=== PATIENT | female | born 1965 | race Caucasian/White ===

== ENCOUNTER 2019-09-21 07:12 | Outpatient (CLI) | payer OTHER, SELFPAY ==
--- NOTE | ~2019-09-21 | MM_ITS ---
EXAMINATION: MM screening [facility] BI w torrie HISTORY: Screening TECHNIQUE: Craniocaudal and mediolateral oblique 3-D tomosynthesis images were obtained and synthetic 2-D images were generated. CAD analysis was submitted and interpreted. COMPARISON: Comparison to multiple prior studies sequentially, with oldest reviewed study dated 08/06. BREAST PARENCHYMAL COMPOSITION: There are scattered areas of fibroglandular density. FINDINGS: There is a focal asymmetry in the lower central aspect of the left breast anteriorly. The r ight breast is stable without evidence for malignancy. IMPRESSION: 1. Focal left breast asymmetry, lower central aspect of the left breast anteriorly. 2. Additional mammographic views and possible breast ultrasound are recommended. BI-RADS Category 0: Incomplete: Needs additional imaging evaluation. Reviewed, dictated and finalized at location A. IMPRESSION: 1. Focal left breast asymmetry, lower central aspect of the left breast anterio rly. 2. Additional mammographic views and possible breast ultrasound are recommended . BI-RADS Category 0: Incomplete: Needs additional imaging evaluation.
== END 2019-09-21 07:13 | disposition home or self-care (01) ==
PROVIDERS: PCP Family Medicine Adolescent Medicine; Visit Provider Nurse Practitioner
DX: Z12.31 Encounter for screening mammogram for malignant neoplasm of breast (principal); R92.8 Other abnormal and inconclusive findings on diagnostic imaging of breast
CPT/HCPCS: 77063; 77067

== ENCOUNTER 2019-10-07 11:31 | Outpatient (CLI) | payer OTHER, SELFPAY ==
--- NOTE | ~2019-10-07 | MMUS_ITS ---
EXAMINATION: MM diagnostic mammo unilat LT, US breast LT limited HISTORY: Focal asymmetry of the left breast on screening mammogram TECHNIQUE: Additional 3-D tomosynthesis images of the left breast were performed and synthetic 2-D im ages were generated. CAD analysis was submitted and interpreted. High resolution limited left breast ultrasound was performed. COMPARISON: 09/21/2019, 09/11/2018, 09/05/2017, 08/30/2016 FINDINGS: MAMMOGRAPHIC FINDINGS: There is a 10 mm x 7 mm oval, obscured, equal density mass with lobulated border at the 6:00 location in the anterior third of the breast 4.5 cm from the nipple. With spot compression, this has an appea janis similar to prior mammograms. ULTRASOUND: There is a 10 mm x 5 mm cluster of microcysts at the 7:00 location 3 cm from the nipple corresponding to the mammographic finding in question. No suspicious cystic or solid mass is identified. IMPRESSION: 1. Clustered microcysts accounting for the abnormality on screening mammogram. No mammographic or son ographic evidence of malignancy. 2. Recommend routine screening mammography in one year. BI-RADS Category 2: Benign finding(s). Reviewed, dictated and finalized at location A. IMPRESSION: 1. Clustered microcysts accounting for the abnormality on screening mammogram. No mammographic or sonographic evidence of malignancy. 2. Recommend routine screening mammography in one year. BI-RADS Category 2: Benign finding(s).
--- NOTE | ~2019-10-07 | DEXA_ITS ---
Bone Density Report Name: Ana Chin Age: 54 Sex: Female Ethnicity: White Date of : 1965 Indication: prior fracture; Referring Provider: EVELIO, SERGIO Study: Bone densitometry was performed. Exam Date: October 07, 2019 Accession number: [id number] Bone Density: Region BMD T-score Z-score Classification AP Spine (L1-L4) 1.174 1.2 2.2 Normal Femoral Neck (Left) 0.920 0.6 1.7 Normal Total Hip (Left) 1.012 0.6 1.2 Normal Total Hip Bilateral Avg 1.002 0.5 1.2 Normal Femoral Neck (Right) 0.868 0.2 1.2 Normal Total Hip (Right) 0.992 0.4 1.1 Normal World Health Organization criteria for BMD impression classify patients as: Normal (T-score at or above -1.0), Osteopenia (T-score between -1.0 and -2.5), or Osteoporosis (T-score at or below -2.5). 10-year Fracture Risk: FRAX not reported because: Premenopausal woman All T-scores for Spine Total, Hip Total, Femoral Neck at or above -1.0 Clinical Information Provided by Patient: Has had a low trauma fracture Has used the following medications: HRT (i.e. estrogen/hormone therapy), Vitamin D Patient maximum height was 71 No regular weight bearing exercise Drinks caffeinated beverages Onset of menses at age 15 Premenopausal Number of children 3 Impression: The patient's bone mass is within expected range for age, gender and ethnicity. The patient has risk factors, including: previous fracture. Discussion: BONE DENSITY IS WITHIN EXPECTED LIMITS FOR AGE, SEX AND RACE. Bone density is within expected limits for age, sex and race at all sites measured. The patient should follow a healthful lifestyle (good nutrition with adequate calcium and vitamin D, and appropriate weight-bearing exercise). Follow-Up: Consider repeating this study in 5 years or sooner if there is some new clinical indication. Reported by: [facility] on 10/07/2019 12:17:00 PM. Reviewed, dictated and finalized at location ASaritha SHAVER
== END 2019-10-07 11:32 | disposition home or self-care (01) ==
PROVIDERS: PCP Family Medicine Adolescent Medicine; Visit Provider Nurse Practitioner
DX: Z13.820 Encounter for screening for osteoporosis (principal); R92.8 Other abnormal and inconclusive findings on diagnostic imaging of breast
CPT/HCPCS: 76642; 77065; 77080

== ENCOUNTER → 2020-04-14 12:43 | Outpatient (CLI) | payer OTHER, SELFPAY ==
--- NOTE | ~2020-04-14 | US_ITS ---
EXAMINATION: US transvaginal DATE: 04/14/2020 13:32 INDICATION: Postmenopausal bleeding TECHNIQUE: Multiple endovaginal sonographic images of the pelvis were obtained. COMPARISON: None. FINDINGS: The uterus measures 9.2 x 5.1 x 5.5 cm. Intramural fibroids of the uterus measure up to 1.7 cm. The endometrial complex measures 5 mm. The right ovary measures 2.0 x 1.0 x 2.1 cm. The left ova ry measures 3.2 x 2.6 x 2.8 cm and contains a 1.6 cm cyst. There is normal vascular flow in the ovari es. There is no free fluid in the pelvis. IMPRESSION: 1. No sonographic correlate for the patient's symptoms. 2. 1.6 cm left ovarian cyst. Follow-up ultrasound in 12 months is recommended. Reviewed, dictated and finalized at location A. ROOM TABLE ATTENDANT
== END ==
PROVIDERS: Visit Provider Nurse Practitioner
DX: N95.0 Postmenopausal bleeding (principal); N83.202 Unspecified ovarian cyst, left side
CPT/HCPCS: 76830

== ENCOUNTER → 2020-09-25 09:48 | Outpatient (CLI) | payer OTHER, SELFPAY ==
--- NOTE | ~2020-09-25 | MM_ITS ---
EXAMINATION: MM screening [facility] BI w torrie HISTORY: Screening mammogram TECHNIQUE: Craniocaudal and mediolateral oblique 3-D tomosynthesis images were obtained and synthetic 2-D images were generated. CAD analysis was submitted and interpreted. COMPARISON: 10/07/2019, 09/21/2019, 09/11/2018, 09/05/2017 BREAST PARENCHYMAL COMPOSITION: There are scattered areas of fibroglandular density. FINDINGS: Stable bilateral breast masses are considered benign given the lack of interval change. The re is no evidence of suspicious mass, calcification, or architectural distortion to suggest malignanc y in either breast. There has been no suspicious interval change. IMPRESSION: 1. No mammographic evidence of malignancy. 2. Recommend routine screening mammography in one year. BI-RADS Category 2: Benign finding(s). Reviewed, dictated and finalized at location A.
== END ==
PROVIDERS: Visit Provider Nurse Practitioner
DX: Z12.31 Encounter for screening mammogram for malignant neoplasm of breast (principal)
CPT/HCPCS: 77063; 77067

== ENCOUNTER 2021-02-10 16:42 | Emergency (ER) | payer OTHER, SELFPAY ==
[2021-02-10 17:32] VITALS: BP 129/75; PULSE 75; RESP 16; TEMP 35.8; O2SAT 99
[2021-02-10 18:07] LABS: Glucose Point of Care 97 mg/dl (65-105)
--- NOTE | 2021-02-10 18:09 | ED.GENADULT ---
HPI - General Adult General Chief complaint: Urogenital-Female Stated complaint: uti complaints Source: patient Mode of arrival: ambulatory Limitations: no limitations History of Present Illness HPI narrative: Patient presents for evaluation of urinary frequency for the last week. She indicates prior to that time she was consuming quite a bit of caffeine but had decreased caffeine intake prior to the time of symptom onset. She denies dysuria, hematuria, hesitancy, or urgency. She has no fever, chills, nausea, vomiting, abdominal pain or back pain. She is postmenopausal. She denies any vaginal bleeding or discharge. She is sexually active with her . No personal hx or family hx of DM. She states she has been under considerable stress since the passing of her father four months ago. She states she cries on a daily basis. No SI, HI, AH, VH. Related Data Home Medications Medication Instructions Recorded Confirmed ergocalciferol (vitamin D2) 1,250 mcg PO WEEKLY 02/10/21 02/10/21 estradiol-norethindrone acet 1 tablet PO DAILY 02/10/21 02/10/21 sertraline 100 mg PO DAILY 02/10/21 02/10/21 Allergies Allergy/AdvReac Type Severity Reaction Status Date / Time No Known Allergies Allergy Mild Verified 02/10/21 17:52 Review of Systems Review of Systems: CONSTITUTIONAL: Denies fever, chills, or sweats. EYES: Denies visual changes, redness, or discharge. ENT: Denies rhinorrhea, congestion, sore throat, or otalgia. CARDIOVASCULAR: Denies chest pain, palpitations, or edema. RESPIRATORY: Denies cough or dyspnea. GASTROINTESTINAL: Denies abdominal pain, nausea, vomiting, or diarrhea. GENITOURINARY: Reports urinary frequency. Denies dysuria, hematuria, hesitancy, urgency. SKIN: Denies rash or itching. MUSCULOSKELETAL: Denies back pain, joint pain, or myalgia. NEUROLOGIC: Denies headache, numbness, dizziness, or weakness. PSYCHIATRIC: Denies anxiety or depression. [facility] Past Medical History Medical History (Updated 02/10/21 @ 18:14 by Scott Ortiz, KARTHIKEYAN, AALIYAH) No pertinent past medical history Surgical History Surgical History History of section Family History Family History Mother No pertinent past medical history Social History Social History Smoking status: Never smoker Alcohol intake: never Substance use: never Living arrangements: with family Gender identity (if verbalized by the patient): Female Sexual Orientation (if Verbalized by the Patient): Straight or Heterosexual Spiritual care concerns: No Exam Narrative: GENERAL: Well-appearing, well-nourished, and in no acute distress. HEAD: Normocephalic, atraumatic. EYES: PERRLA and EOMI. ENT: Nares clear, no rhinorrhea or epistaxis. Mucous membranes moist. Oropharynx without tonsillar hypertrophy exudate or other lesions. Bilateral TMs pearly jones nonbulging NECK: Supple. No adenopathy or masses. No carotid bruits or JVD CHEST: Clear to auscultation. No respiratory distress. No wheezes rales or rhonchi HEART: Regular rate and rhythm. No murmur heard. Normal peripheral pulses. ABDOMEN: Soft, nontender, nondistended, normal active bowel sounds. No abdominal tenderness. No CVA tenderness. EXTREMITIES: Normal range of motion. No edema. SKIN: Warm, dry, no rash. NEURO: No focal deficits. Alert and oriented x3. PSYCH: Normal mood and affect. Course Course Emergency Course: This is a 55-year-old female who presented with complaints of urinary frequency without any other urinary symptoms. She has no abdominal tenderness or CVA tenderness. She has no systemic signs of infection. She is not experiencing any vaginal bleeding or discharge. Her urine here showed 1+ blood. Blood sugar was normal. Doubt UTI. Will send for urine culture. Advised to call urol
== END 2021-02-10 18:15 | disposition home or self-care (01) ==
PROVIDERS: Emergency Provider Nurse Practitioner; PCP Family Medicine Adolescent Medicine
DX: R35.0 Frequency of micturition (principal); R31.29 Other microscopic hematuria
CPT/HCPCS: 81003; 82948; 87086; 87088; 99213; G0463

== ENCOUNTER → 2021-06-29 14:59 | Outpatient (CLI) | payer OTHER, SELFPAY ==
--- NOTE | ~2021-06-29 | US_ITS ---
EXAMINATION: US transvaginal DATE: 06/29/2021 15:32 INDICATION: Postmenopausal bleeding Comparison:04/14/2020 TECHNIQUE: Multiple endovaginal sonographic images of the pelvis performed. FINDINGS: The uterus measures 8 x 4.8 x 4.9 cm. Uterus is retroverted. There are multiple ill-defined masses, consistent with fibroid changes The endometrial complex measures 8 mm. The right ovary measures 2.2 x 1.6 x 0.9 cm and the left ovary measures 2 x 1.2 x 1.8 cm. There are small follicles in each ovary. Normal doppler signal in both ovaries. There is no free fluid in the pelvis. There are no abnormal masses seen on either side. IMPRESSION: 1. Retroverted uterus containing fibroids, largest measuring approximately 2 cm. Otherwise, unremarka ble pelvic ultrasound. Reviewed, dictated and finalized at location B. IMPRESSION: 1. Retroverted uterus containing fibroids, largest measuring approximately 2 cm . Otherwise, unremarkable pelvic ultrasound.
== END ==
PROVIDERS: PCP Family Medicine Adolescent Medicine; Visit Provider Obstetrics & Gynecology Gynecology
DX: N95.0 Postmenopausal bleeding (principal); N85.4 Malposition of uterus; D25.9 Leiomyoma of uterus, unspecified
CPT/HCPCS: 76830

== ENCOUNTER 2021-08-26 18:55 | Emergency (ER) | payer OTHER, SELFPAY ==
[2021-08-26 19:02] VITALS: BP 151/84; PULSE 86; RESP 16; TEMP 37.1; O2SAT 98
--- NOTE | 2021-08-26 19:07 | ED.ANXIETY ---
HPI - Anxiety General Chief Complaint: Anxiety Stated Complaint: ANXIETY Time Seen by Provider: 08/26/21 19:07 Source: patient, RN notes reviewed and old records reviewed Mode of arrival: ambulatory Limitations: no limitations History of Present Illness HPI narrative: 56-year-old female presents to the [facility] with complaints of anxiety. Reports that her father 10 months ago. Yesterday put her mom into a half-way. Patient has a history of anxiety. Feels guilty about putting mom in a half-way and that she is unable to do everything. Had seen her [employer] provider. It was suggested that she go from 100 mg of Zoloft to 150 which she at this time chose not to do. Was prescribed some Atarax which she reports makes her very drowsy. States she really does not like taking it. Patient states that sometimes she feels like she just gets a little short of breath. Denies any chest pain. Denies any sick symptoms. Denies abdominal pain. Denies suicidal or homicidal feelings Long discussion with patient in regards to self-care, sleep hygiene and the importance of following up with primary care provider for further evaluation. Patient tearful at times. at bedside and very supportive of patient. Patient states that it is just her and her . Does not have other support for the mom. History of similar episodes: Yes Related Data Home Medications Medication Instructions Recorded Confirmed ergocalciferol (vitamin D2) 1,250 1,250 mcg PO WEEKLY 02/10/21 08/08/21 mcg (50,000 unit) capsule estradiol-norethindrone acet 0.5 1 tablet PO DAILY 02/10/21 08/08/21 mg-0.1 mg tablet sertraline 100 mg tablet 100 mg PO DAILY 02/10/21 08/08/21 hydroxyzine pamoate 25 mg capsule See Rx Instructions PO QID PRN 08/08/21 08/08/21 Allergies Allergy/AdvReac Type Severity Reaction Status Date / Time No Known Allergies Allergy Mild Verified 08/08/21 14:07 Review of Systems Review of Systems: All systems reviewed & are unremarkable except as noted in HPI and below Constitutional: Constitutional: Reports no additional constitutional complaints, Denies chills and Denies fever(s) Eyes: Eyes: Reports no additional eye complaints ENT: Reports system reviewed and no additional complaints, except as documented Cardiovascular: Cardiovascular: Reports no additional cardiovascular complaints Respiratory: Respiratory: Reports no additional respiratory complaints Gastrointestinal: Gastrointestinal: Reports no additional gastrointestinal complaints Musculoskeletal: Musculoskeletal: Reports no additional musculoskeletal complaints Integumentary/Breasts: Skin/Breast: Reports system reviewed and no additional complaints, except as docu Neurologic: Reports system reviewed and no additional complaints, except as documented Psychiatric: Psychiatric: Reports as per HPI, Reports anxiety, Denies homicidal ideation and Denies suicidal ideation Allergic/Immunologic: Allergic/Immunologic: Reports no additional allergic/immunologic complaints PMFSH Past Medical History Medical History Anxiety Pure hypercholesterolemia, unspecified Surgical History Surgical History H/O hernia repair Hx of section Family History Family History Mother No pertinent past medical history Father Stomach cancer Social History Social History Smoking status: Never smoker Second hand tobacco smoke exposure: No Alcohol intake: never Substance use: never Substance use type: does not use Gender identity (if verbalized by the patient): Female Sexual Orientation (if Verbalized by the Patient): Straight or Heterosexual Spiritual care concerns: No Agree to blood products: Yes Comments At the time of my signature, I r
== END 2021-08-26 19:49 | disposition home or self-care (01) ==
PROVIDERS: Emergency Provider Nurse Practitioner; PCP Family Medicine Adolescent Medicine
DX: F41.9 Anxiety disorder, unspecified (principal); E78.00 Pure hypercholesterolemia, unspecified
CPT/HCPCS: 99211; G0463

== ENCOUNTER 2021-09-01 14:50 | Emergency (ER) | payer OTHER, SELFPAY ==
--- NOTE | ~2021-09-01 | XR_ITS ---
EXAMINATION: XR chest 2V Exam Date/Time: 09/01/2021 15:25 CDT HISTORY: SOB, ANXIETY Comparison: 03/24/2007. RESULT: Lines, tubes, and devices: None. Lungs and pleura: Clear. Cardiomediastinal silhouette: Stable cardiomediastinal silhouette. Other: No acute osseous or upper abdominal finding. IMPRESSION: No acute cardiopulmonary process. Reviewed, dictated and finalized at location K.
[2021-09-01 14:51] VITALS: BP 143/83; PULSE 95; RESP 18; TEMP 36.4; O2SAT 99
--- NOTE | 2021-09-01 15:10 | ECG_ITS ---
Measurements Intervals [place] Rate: 79 P: 59 [place]: 136 QRS: 52 QRSD: 103 T: 38 QT: 378 QTc: 434 Interpretive Statements SINUS RHYTHM INCOMPLETE RIGHT BUNDLE BRANCH BLOCK BORDERLINE ECG Electronically Signed On 09-01-2021 17:06:53 CDT by Rito James D.O.
--- NOTE | 2021-09-01 15:15 | ED.ANXIETY ---
HPI - Anxiety General Chief Complaint: Anxiety Stated Complaint: anxiety, sob Time Seen by Provider: 09/01/21 14:59 History of Present Illness HPI narrative: 56-year-old female here for evaluation of increased anxiety for the past several days. Patient has a known history of anxiety, and notes that she has had several life stressors in the past several weeks that have led to increased anxiety. She states her anxiety symptoms manifest with trouble getting a deep breath in. She takes sertraline daily and hydroxyzine as needed, but states that the hydroxyzine makes her sleepy and she does not like taking it. Denies chest pain, syncope, leg swelling, history of DVT, palpitations, headaches. Related Data Home Medications Medication Instructions Recorded Confirmed ergocalciferol (vitamin D2) 1,250 1,250 mcg PO WEEKLY 02/10/21 08/27/21 mcg (50,000 unit) capsule estradiol-norethindrone acet 0.5 1 tablet PO DAILY 02/10/21 08/27/21 mg-0.1 mg tablet hydroxyzine pamoate 25 mg capsule See Rx Instructions PO QID PRN 08/08/21 08/27/21 Anxiety sertraline 100 mg tablet 150 mg PO DAILY 08/27/21 08/27/21 Allergies Allergy/AdvReac Type Severity Reaction Status Date / Time No Known Allergies Allergy Mild Verified 08/27/21 13:38 Review of Systems Review of Systems: Gen.: Denies fevers or chills Eyes: Denies eye pain or visual change ENT: Denies congestion Respiratory: Denies shortness of breath or cough CV: Reports trouble getting her breath in. Denies chest pain or palpitations GI: Reports abdominal pain nausea, emesis or diarrhea denies burning, urgency, frequency or hematuria Musculoskeletal: Denies back pain or muscle pain Neuro: Denies numbness, tingling, weakness or focal weakness Psych: Reports anxiety. Skin: Denies rash 10 point review of systems negative, other than as per history of present illness, past medical history and other positives and review of systems PMFSH Past Medical History Medical History Anxiety Pure hypercholesterolemia, unspecified Surgical History Surgical History H/O hernia repair Hx of section Family History Family History Mother No pertinent past medical history Father Stomach cancer Social History Social History (Updated 08/27/21 @ 13:40 by May Tai MA) Smoking status: Never smoker Second hand tobacco smoke exposure: No Alcohol intake: never Substance use: never Substance use type: does not use Gender identity (if verbalized by the patient): Female Sexual Orientation (if Verbalized by the Patient): Straight or Heterosexual Spiritual care concerns: No Agree to blood products: Yes Exam Narrative: APPEARANCE: Well appearing, no pain in distress, well-nourished. Head: Normocephalic and atraumatic. EYES: PERRLA/EOMI, conjunctivae clear NOSE: No nasal drainage EARS: External ear normal in appearance THROAT: Oropharynx is clear. Mucous membranes are moist. NECK: Supple. No adenopathy, no masses. RESPIRATORY: Airway patent, respirations nonlabored. Clear to auscultation bilaterally, no rales, rhonchi, wheezing. CARDIOVASCULAR: Regular rate and rhythm without murmurs, rubs, or gallops. ABDOMINAL: Normoactive bowel sounds. Soft, nontender, nondistended. No rebound tenderness or guarding. MUSCULOSKELETAL: Extremities are warm and well-perfused. Moves all extremities well. No edema. NEURO: Normal speech. No focal neurologic deficits. SKIN: Skin is warm and dry. No rashes. PSYCHIATRIC: Anxious mood. Course Vital Signs Vital signs: Vital Signs Temperature 97.6 F 09/01/21 14:51 Pulse Rate 95 09/01/21 14:51 Respiratory Rate 18 09/01/21 14:51 Blood Pressure 143/83 H 09/01/21 14:51 Pulse Oximetry 99 09/01/21 14:51 Oxygen Delivery Room Air
[2021-09-01 15:26] LABS: Basophils Percent Auto 0.5 % (0.2-1.2); Eosinophils Absolute Auto 0.1 K/mm3 (0-0.3); Eosinophils Percent Auto 1.6 % (0-4.4); Hematocrit 44.2 % (37.0-47.0); Hemoglobin 13.9 g/dL (12.0-15.0); Immature Granulocyte Absolute 0.01 K/mm3 (0.00-0.031); Immature Granulocyte Percent A 0.1 % (0-0.5); Lymphocytes Absolute Auto 2.09 K/mm3 (0.9-3.2); Mean Corpuscular HGB Conc 31.4 g/dl (32-36); Mean Corpuscular Hemoglobin 28.5 pg (26-34); Mean Corpuscular Volume 90.6 fl (80-100); Mean Platelet Volume 10.1 fl (7.4-10.4); Monocytes Absolute Auto 0.5 K/mm3 (0.1-0.6); Monocytes Percent Auto 6.2 % (2.6-8.5); Neutrophils Percent Auto 64.6 % (45.5-73.1); Platelet Count Result 229 k/mm3 (150-375); Red Blood Count 4.88 M/mm3 (4.2-5.4); White Blood Count 7.7 K/mm3 (4.5-10.0)
[2021-09-01 15:40] LABS: Alanine Aminotransferase 21 U/L (6-35); Albumin Level 4.9 g/dL (3.5-5.1); Alkaline Phosphatase 81 U/L (38-126); Anion Gap 6 mmol/L (8-16); Aspartate Amino Transferase 23 U/L (14-36); Bilirubin,Total 0.7 mg/dL (0.2-1.3); Blood Urea Nitrogen 14 mg/dL (7-17); Calcium 9.3 mg/dL (8.4-10.2); Carbon Dioxide 30 mmol/L (22-30); Chloride 105 mmol/L (98-107); Estimated CRCL calculation 71 ml/min; Estimated Glomerular Filt Rate > 60; Glucose 124 mg/dL (65-110); Potassium 3.9 mmol/L (3.4-5.0); Sodium 141 mmol/L (137-145)
[2021-09-01 16:16] LABS: Troponin I < 0.012 ng/mL (0.000-0.034)
[2021-09-01 17:01] VITALS: BP 120/90; PULSE 69; RESP 16; O2SAT 97
== END 2021-09-01 17:01 | disposition home or self-care (01) ==
PROVIDERS: Physician Assistant; Emergency Provider Emergency Medicine; PCP Family Medicine Adolescent Medicine
DX: F41.9 Anxiety disorder, unspecified (principal); E78.00 Pure hypercholesterolemia, unspecified; I45.10 Unspecified right bundle-branch block
CPT/HCPCS: 36415; 71046; 80053; 84443; 84484; 85025; 93005; 99284

== ENCOUNTER 2021-09-29 08:40 | Outpatient (CLI) | payer OTHER, SELFPAY ==
--- NOTE | ~2021-09-29 | MM_ITS ---
EXAMINATION: MM screening elroy BI w torrie HISTORY: Screening TECHNIQUE: Craniocaudal and mediolateral oblique 3-D tomosynthesis images were obtained and synthetic 2-D images were generated. CAD analysis was submitted and interpreted. COMPARISON: Comparison to multiple prior studies sequentially, with oldest reviewed study dated 08/30. BREAST PARENCHYMAL COMPOSITION: There are scattered areas of fibroglandular density. FINDINGS: The right breast is stable without evidence for malignancy. There are multiple new nodular asymmetry centered in the upper outer quadrant of the left breast. IMPRESSION: 1. Multiple new nodular asymmetries of the left breast. 2. Additional mammographic views and possible breast ultrasound are recommended. BI-RADS Category 0: Incomplete: Needs additional imaging evaluation. Reviewed, dictated and finalized at location A. IMPRESSION: 1. Multiple new nodular asymmetries of the left breast. 2. Additional mammographic views and possible breast ultrasound are recommended . BI-RADS Category 0: Incomplete: Needs additional imaging evaluation.
== END 2021-09-29 08:41 | disposition home or self-care (01) ==
PROVIDERS: PCP Family Medicine Adolescent Medicine; Visit Provider Obstetrics & Gynecology Gynecology
DX: Z12.31 Encounter for screening mammogram for malignant neoplasm of breast (principal); R92.8 Other abnormal and inconclusive findings on diagnostic imaging of breast
CPT/HCPCS: 77063; 77067

== ENCOUNTER → 2021-10-12 07:37 | Outpatient (CLI) | payer OTHER, SELFPAY ==
--- NOTE | ~2021-10-12 | MMUS_ITS ---
EXAMINATION: MM diagnostic elroy LT w torrie, US breast LT limited HISTORY: Possible left breast masses on screening mammogram TECHNIQUE: Additional 3-D tomosynthesis images of the left breast were performed and synthetic 2-D im ages were generated. CAD analysis was submitted and interpreted. High resolution limited left breast ultrasound was performed. COMPARISON: 09/29/2021, 09/25/2020, 10/07/2019, 09/21/2019 FINDINGS: MAMMOGRAPHIC FINDINGS: There is a return to baseline fibroglandular appearance with spot compression of the left breast in t he area questioned on screening mammogram. ULTRASOUND: Small cysts in the upper outer quadrant of the breast measure up to 4 mm. No suspicious cystic or bess id mass is identified. IMPRESSION: 1. No mammographic or sonographic evidence of malignancy. 2. Recommend routine screening mammography in one year. BI-RADS Category 2: Benign finding(s). Reviewed, dictated and finalized at location A. IMPRESSION: 1. No mammographic or sonographic evidence of malignancy. 2. Recommend routine screening mammography in one year. BI-RADS Category 2: Benign finding(s).
== END ==
PROVIDERS: PCP Family Medicine Adolescent Medicine; Visit Provider Obstetrics & Gynecology Gynecology
DX: R92.8 Other abnormal and inconclusive findings on diagnostic imaging of breast (principal); N60.02 Solitary cyst of left breast
CPT/HCPCS: 76642; 77061; 77065; G0279

== ENCOUNTER → 2022-07-25 09:55 | Outpatient (CLI) | payer OTHER, SELFPAY ==
--- NOTE | ~2022-07-25 | MMUS_ITS ---
EXAMINATION: MM diagnostic elroy LT w torrie, US breast LT complete HISTORY: Skin dimpling, outer mid left breast, for 2 weeks TECHNIQUE: Full field and spot ML, MLO and CC 3-D tomosynthesis images of the left breast were perfor med and synthetic 2-D images were generated. CAD analysis was submitted and interpreted. High resolut ion complete left breast ultrasound examination including all 4 quadrants and subareolar area was per formed. COMPARISON: 10/12/2021 diagnostic left mammogram and limited left breast ultrasound 09/25/2020 bilateral screening mammogram 10/07/2019 diagnostic left mammogram and limited left breast ultrasound FINDINGS: MAMMOGRAPHIC FINDINGS: There are multiple scattered 6 mm smaller circumscribed nodular densities. No suspicious mass or arch itectural distortion, malignant calcification, skin thickening or retraction is evident. ULTRASOUND: At 4:00 6 cm from the nipple at the area of palpable abnormality there is a small irregular hypoechoi c lesion measuring approximately 2 x 2.5 mm, with posterior shadowing. Ultrasound-guided biopsy is re commended. There are multiple scattered circumscribed sonolucent and hypoechoic benign-appearing lesions, the la rgest situated at 2:00 4 cm from the nipple, measuring 2.1 x 5.5 x 6.1 mm, without internal vasculari ty or posterior shadowing. IMPRESSION: 1. Small irregular hypoechoic up to 2.5 mm lesion with posterior shadowing at 4:00 6 cm from nipple 2. Ultrasound-guided biopsy of left breast 4:00 lesion is recommended BI-RADS category 4, suspicious findings. Reviewed, dictated and finalized at location A. IMPRESSION: 1. Small irregular hypoechoic up to 2.5 mm lesion with posterior shadowing at 4 :00 6 cm from nipple 2. Ultrasound-guided biopsy of left breast 4:00 lesion is recommended BI-RADS category 4, suspicious findings.
== END ==
PROVIDERS: PCP Nurse Practitioner; Visit Provider Nurse Practitioner
DX: N64.89 Other specified disorders of breast (principal); R92.2 Inconclusive mammogram
CPT/HCPCS: 76641; 77061; 77065; G0279

== ENCOUNTER 2024-04-26 10:09 | Outpatient (CLI) | payer OTHER, SELFPAY ==
--- NOTE | ~2024-04-26 | US_ITS ---
US transvaginal Ordering provider: Monica Song, [employer] History: . Postmenopausal bleeding . Comparison: None. Technique: endovaginal ultrasound of the pelvis (Doppler ultrasound interrogation techniques used as needed for this exam.) FINDINGS: CERVIX: Normal. UTERUS: Measures 6.5x 3.6x 4.6 cm in length which is within normal limits and is anteverted. Fibroid is seen anteriorly measuring 1.6 x 1.5 x 1.9 CNM. ENDOMETRIUM: Normal in thickness measuring 3.4 mm. No endometrial masses, cysts or fluid. CUL DE SAC: No free fluid. RIGHT OVARY: Normal in size.Normal echotexture. Doppler vascular flow present. LEFT OVARY: Normal in size . Normal echotexture. Doppler vascular flow present. ADNEXA: Normal. No mass. IMPRESSION: Fibroid of the uterus Otherwise, normal pelvic ultrasound. Reviewed, dictated and finalized at location A.
== END 2024-04-26 10:10 | disposition home or self-care (01) ==
PROVIDERS: PCP Nurse Practitioner; Visit Provider Nurse Practitioner
DX: N95.0 Postmenopausal bleeding (principal); D25.9 Leiomyoma of uterus, unspecified
CPT/HCPCS: 76830

== ENCOUNTER 2024-05-23 08:04 | Emergency (ER) | payer OTHER, SELFPAY ==
--- NOTE | 2024-05-23 08:06 | ED.URI ---
HPI - URI/Sore Throat General Chief Complaint: Upper Respiratory Infection Stated Complaint: sore throat,cough Time Seen by Provider: 05/23/24 08:05 Source: patient Mode of arrival: ambulatory Limitations: no limitations History of Present Illness HPI Narrative: Ana is a 59-year-old female patient presenting to the clinic today with complaints of sore throat and cough x3 days. She reports no known fevers, chills, or body aches. States she started to lose her voice over the last 2 days. Had strep test done on May 21 and it was negative at her doctor's office. Has done two at home COVID testing were negative. Related Data Home Medications ?Medication ?Instructions ?Recorded ?Confirmed ?Last Taken ?Type ergocalciferol (vitamin D2) 1,250 1,250 mcg PO WEEKLY 02/10/21 01/26/24 Unknown History mcg (50,000 unit) capsule atorvastatin 20 mg tablet mg 05/23/24 Unknown History Allergies Allergy/AdvReac Type Severity Reaction Status Date / Time No Known Allergies Allergy Mild Verified 05/23/24 08:12 Review of Systems Review of Systems: Pertinent positives per HPI. Patient denies any fever, chills, rash, headache, visual changes, dizziness, cough, shortness of breath, chest pain, palpitations, nausea, vomiting, diarrhea, constipation, abdominal pain, or any urinary issues. [facility] Past Medical History Medical History Anxiety Pure hypercholesterolemia, unspecified Surgical History Surgical History H/O hernia repair Hx of section Family History Family History Mother No pertinent past medical history Father Stomach cancer Social History Social History Smoking status: Never smoker Second hand tobacco smoke exposure: No Alcohol intake: never Substance use: never Substance use type: does not use Living arrangements: with family Occupation/Education: occupation Gender identity (if verbalized by the patient): Female Sexual Orientation (if Verbalized by the Patient): Straight or Heterosexual Spiritual care concerns: No Agree to blood products: Yes Comments At the time of my signature, I reviewed and agree with the nursing past medical, surgical, social, and family history. There is no relevant family history pertinent to the patient complaint. Exam Narrative: General: Well-developed, well nourished, in no apparent distress Head: Normocephalic, atraumatic Eyes: Pupils equally round and reactive to light bilaterally, EOM intact, sclera and conjunctive clear, no discharge, lids normal Ears: TMs intact and congested, ear canals clear, no drainage, grossly hearing normal. Nose: Nares patent, clear nasal discharge, no inflammation, no sinus tenderness. Mouth: Oral pharynx without lesions or masses, good dentition, MMM. Postnasal drip Neck: Supple, trachea midline, no enlargement of anterior or posterior cervical nodes, no thyroid masses or goiter palpable. Cardio: Regular rate and rhythm, s1 and s2 normal, no murmur appreciated. Resp: Clear to auscultation bilaterally, no rhonchi, rales, wheezing or rubs Course Course Emergency Course: Portions of this record may have been created with voice recognition software. Level of Care: Express Care Visit Vital Signs Vital signs: Vital signs reviewed MDM - URI/Sore Throat MDM Narrative Medical decision making narrative: At the time of visit patient is resting comfortably on the exam table. Patient appears to be nontoxic. Plan: I suspect patient has URI/pharyngitis. Offer to send and steroids for the patient for symptoms however she stated that she is unable to take steroids due to a retinal issue. Will send in prescription for some Tessalon Perles. Supportive measures were discussed with the patient and they voiced understanding discharge instructions and agrees to treatment plan. Return precautions reviewed Differential Diagnosis Differential diagnosis: Likely upper respiratory infection, otitis media, sinusitis, viral infection, bronchitis, influenza, pharyngitis and other (COVID) Discharge Plan Discharge Clinical Impression: URI (upper respiratory infection) Qualifiers: URI type: unspecified URI Qualified Code(s): J06.9 - Acute upper respiratory infection, unspecified Pharyngitis Qualifiers: Pharyngitis/tonsillitis etiology: unspecified etiology Qualified Code(s): J02.9 - Acute pharyngitis, unspecified Patient Disposition: Home Condition: Stable Instructions: Antibiotic Form, Pharyngitis (ED), Cold Symptoms (ED) Additional Instructions: Take medications as prescribed-Slava Grijalva May take Mucinex during the day Increase fluids and stay well hydrated Tylenol/motrin for pain/fever OTC antihistamines such as Zyrtec or Claritin as directed Vicks vapor rub to open sinuses Sinus rinses for congestion Cepacol spray, cough drops, throat lozenges, warm tea with honey/lemon, gargle salt water to soothe throat BRAT diet for diarrhea Clear liquids x 24 hours then advance as tolerated for nausea/vomiting Go to the ED if you develop a worsening in your condition- high fever not controlled by Tylenol or Motrin, dehydration, weakness, lethargy, shortness of breath, or chest pain. Follow up with your PCP in 3-5 days if symptoms persist. Patient Language: Mongolian Prescriptions: New benzonatate 200 mg capsule 200 mg PO TID 7 Days Qty: 21 0RF No Action ergocalciferol (vitamin D2) 1,250 mcg (50,000 unit) capsule 1,250 mcg PO WEEKLY atorvastatin 20 mg tablet buspirone 10 mg tablet 10 mg PO BID Qty: 60 5RF sertraline 100 mg tablet 150 mg PO DAILY Qty: 60 5RF lorazepam 0.5 mg tablet 0.5 mg PO BID PRN (Reason: anxiety) Qty: 40 1RF meclizine 25 mg tablet 25 mg PO QID PRN (Reason: dizziness) Qty: 20 0RF Follow-up/Referrals: Juan Neville MD [Primary Care Provider] - Time of Disposition: 08:22 Quality NIHSS Nursing Documentation ED NIHSS nursing documentation: reviewed/agree
[2024-05-23 08:14] VITALS: BP 135/77; PULSE 86; RESP 20; TEMP 37.2; O2SAT 97
== END 2024-05-23 08:30 | disposition home or self-care (01) ==
PROVIDERS: Emergency Provider Nurse Practitioner Family; PCP Family Medicine Adolescent Medicine
DX: J06.9 Acute upper respiratory infection, unspecified (principal); J02.9 Acute pharyngitis, unspecified; E78.00 Pure hypercholesterolemia, unspecified; F41.9 Anxiety disorder, unspecified
CPT/HCPCS: 99213; G0463

== ENCOUNTER 2024-11-09 14:24 | Outpatient (CLI) | payer OTHER, SELFPAY ==
--- OUTSIDE RECORDS SUMMARY | 2017-09-05 | XMS_ITS | Encounter Summary ---
Author Organization [facility] Healthcare Address [address] [place] [address] Care Team Providers Care Business Development Intern Name Role Phone Unavailable Primary Care Provider Unavailabl e Reason for Visit * Diagnostic Imaging (Routine) - Closed Specialty Diagnoses / Procedures Referred By Margarita minaya Referred To Contact Diagnoses Mass of left breast, unspecified quadrant Procedures Breast Imaging Screening Outside Reference Karina Mcmanus NP Phone: tel: fax: Referral ID Status Reason Start Date Expiration Date Visits Re quested Visits Authorized [id number] Closed 08/08/2022 09/07/2023 1 1 Encounter Details Date Type Department Care Team (Late st Contact Info) Description 09/05/2017 Hospital Encounter [facility] [address] [place] [id number] Social History Tobacco Use Types Packs/Day Years Used Date Smoking Tobacco: Never Passive Smoke Exposure: Never Smokeless Tobacco: Never Comments No Sex and Gender Information Value Date Recorded Sex Assigned at Not on file Legal Sex Female 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 TECH Gender Identity Female 07/11/2023 7:56 AM CDT Sexual Orientation Straight 07/11/2023 7: 57 AM CDT documented as of this encounter Plan of Treatment Not on file documented as of this encounter Procedures Procedure Name Priority Date/Time Associated Diagnosis Comments BREAST IMAGING MG SCREENING OUTSIDE REFERENCE Schedule Routine, Read Routine (OP Routine) 09/05/2017 12:00 AM CDT Mass of left breast, unspecified quadrant documented in this encounter Results * Breast Imaging Screening Outside Reference (09/05/2017 12:00 AM CDT) Impressions [facility] - 08/08/2022 9:17 AM CDT These images are for Reference purposes only and have not been reviewed by [facility] Radiology. There will be no report generated by a [facility] Radiologist. Narrative [facility] - 08/08/2022 9:17 AM CDT EXAMINATION: Images For Reference Purposes Only us Karina Mcmanus NP IMG MAMMO PROCEDURES Fin al Result [facility] documented in this encounter Visit Diagnoses Not on filedocumented in this encounter
--- OUTSIDE RECORDS SUMMARY | 2018-09-11 | XMS_ITS | Encounter Summary ---
Author Organization [facility] Healthcare Address [address] [place] [address] Care Team Providers Care Communications Designer Name Role Phone Unavailable Primary Care Provider Unavailabl e Reason for Visit * Diagnostic Imaging (Routine) - Closed Specialty Diagnoses / Procedures Referred By Margarita minaya Referred To Contact Procedures Breast Imaging Screening Outside Reference Karina Mcmanus NP Phone: tel: fax: Referral ID Status Reason Start Date Expiration Date Visits Re quested Visits Authorized [id number] Closed 08/08/2022 09/07/2023 1 1 Encounter Details Date Type Department Care Team (Late st Contact Info) Description 09/11/2018 Hospital Encounter [facility] [address] [place] [id number] Social History Tobacco Use Types Packs/Day Years Used Date Smoking Tobacco: Never Passive Smoke Exposure: Never Smokeless Tobacco: Never Comments No Sex and Gender Information Value Date Recorded Sex Assigned at Not on file 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 Gender Identity Female 07/11/2023 7:56 AM CDT Sexual Orientation Straight 07/11/2023 7: 57 AM CDT documented as of this encounter Plan of Treatment Not on file documented as of this encounter Procedures Procedure Name Priority Date/Time Associated Diagnosis Comments BREAST IMAGING MG SCREENING OUTSIDE REFERENCE Routine 09/11/2018 12:00 AM CDT documented in this encounter Results * Breast Imaging Screening Outside Reference (09/11/2018 12:00 AM CDT) Impressions [facility] - 08/08/2022 9:17 AM CDT These images are for Reference purposes only and have not been reviewed by [facility] Radiology. There will be no report generated by a [facility] Radiologist. Narrative [facility] - 08/08/2022 9:17 AM CDT EXAMINATION: Images For Reference Purposes Only us Karina Mcmanus NP IMG MAMMO PROCEDURES Fin al Result [facility] documented in this encounter Visit Diagnoses Not on filedocumented in this encounter
--- OUTSIDE RECORDS SUMMARY | 2019-09-21 | XMS_ITS | Encounter Summary ---
Author Organization [facility] Healthcare Address [address] [place] [address] Care Team Providers Care Tyre Builder Name Role Phone Unavailable Primary Care Provider Unavailabl e Reason for Visit * Diagnostic Imaging (Routine) - Closed Specialty Diagnoses / Procedures Referred By Margarita minaya Referred To Contact Procedures Breast Imaging Screening Outside Reference Karina Mcmanus NP Phone: tel: fax: Referral ID Status Reason Start Date Expiration Date Visits Re quested Visits Authorized [id number] Closed 08/08/2022 09/07/2023 1 1 Encounter Details Date Type Department Care Team (Late st Contact Info) Description 09/21/2019 Hospital Encounter [facility] [address] [place] [id number] Social History Tobacco Use Types Packs/Day Years Used Date Smoking Tobacco: Never Passive Smoke Exposure: Never Smokeless Tobacco: Never Comments No Sex and Gender Information Value Date Recorded Sex Assigned at Not on file 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 Gender Identity Female 07/11/2023 7:56 AM CDT Sexual Orientation Straight 07/11/2023 7: 57 AM CDT documented as of this encounter Plan of Treatment Not on file documented as of this encounter Procedures Procedure Name Priority Date/Time Associated Diagnosis Comments BREAST IMAGING MG SCREENING OUTSIDE REFERENCE Routine 09/21/2019 12:00 AM CDT documented in this encounter Results * Breast Imaging Screening Outside Reference (09/21/2019 12:00 AM CDT) Impressions [facility] - 08/08/2022 9:36 AM CDT These images are for Reference purposes only and have not been reviewed by [facility] Radiology. There will be no report generated by a [facility] Radiologist. Narrative [facility] - 08/08/2022 9:36 AM CDT EXAMINATION: Images For Reference Purposes Only us Karina Mcmanus NP IMG MAMMO PROCEDURES Fin al Result [facility] documented in this encounter Visit Diagnoses Not on filedocumented in this encounter
--- OUTSIDE RECORDS SUMMARY | 2019-10-07 | XMS_ITS | Encounter Summary ---
Author Organization [facility] Healthcare Address [address] [place] [address] Care Team Providers Care Papeterie Table Assembler Name Role Phone Unavailable Primary Care Provider Unavailabl e Reason for Visit * Diagnostic Imaging (Routine) - Closed Specialty Diagnoses / Procedures Referred By Margarita minaya Referred To Contact Procedures Breast Imaging US Outside Reference Karina Mcmanus NP Phone: tel: fax: Referral ID Status Reason Start Date Expiration Date Visits Re quested Visits Authorized [id number] Closed 08/08/2022 09/07/2023 1 1 Encounter Details Date Type Department Care Team (Late st Contact Info) Description 10/07/2019 Hospital Encounter [facility] [address] [place] [id number] Social History Tobacco Use Types Packs/Day Years Used Date Smoking Tobacco: Never Passive Smoke Exposure: Never Smokeless Tobacco: Never Comments No Sex and Gender Information Value Date Recorded Sex Assigned at Not on file Legal Sex Female 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 MANAGER Gender Identity Female 07/11/2023 7:56 AM CDT Sexual Orientation Straight 07/11/2023 7 :57 AM CDT documented as of this encounter Plan of Treatment Not on file documented as of this encounter Procedures Procedure Name Priority Date/Time Associated Diagnosis Comments BREAST IMAGING US OUTSIDE REFERENCE Routine 10/07/2019 12:00 AM CDT documented in this encounter Results * Breast Imaging US Outside Reference (10/07/2019 12:00 AM CDT) Impressions [facility] - 08/08/2022 9:35 AM CDT These images are for Reference purposes only and have not been reviewed by [facility] Radiology. There will be no report generated by a [facility] Radiologist. Narrative [facility] - 08/08/2022 9:35 AM CDT EXAMINATION: Images For Reference Purposes Only us Karina Mcmanus NP IMG MAMMO PROCEDURES Fin al Result [facility] documented in this encounter Visit Diagnoses Not on filedocumented in this encounter
--- OUTSIDE RECORDS SUMMARY | 2019-10-07 00:05 | XMS_ITS | Encounter Summary ---
Author Organization [facility] Healthcare Address [address] [place] [address] Care Team Providers Care Arts Therapist Name Role Phone Unavailable Primary Care Provider Unavailabl e Reason for Visit * Diagnostic Imaging (Routine) - Closed Specialty Diagnoses / Procedures Referred By Margarita minaya Referred To Contact Procedures Breast Imaging Diagnostic Outside Reference Karina Mcmanus NP Phone: tel: fax: Referral ID Status Reason Start Date Expiration Date Visits Re quested Visits Authorized [id number] Closed 08/08/2022 09/07/2023 1 1 Encounter Details Date Type Department Care Team (Late st Contact Info) Description 10/07/2019 12:05 AM CDT Hospital Encounter [facility] ([facility]) [address] [place] [id number] Social History Tobacco Use Types Packs/Day Years Used Date Smoking Tobacco: Never Passive Smoke Exposure: Never Smokeless Tobacco: Never Comments No Sex and Gender Information Value Date Recorded Sex Assigned at Not on file 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 Gender Identity Female 07/11/2023 7:56 AM CDT Sexual Orientation Straight 07/11/2023 7: 57 AM CDT documented as of this encounter Plan of Treatment Not on file documented as of this encounter Procedures Procedure Name Priority Date/Time Associated Diagnosis Comments BREAST IMAGING MG DIAGNOSTIC OUTSIDE REFERENCE Routine 10/07/2019 12:05 AM CDT documented in this encounter Results * Breast Imaging Diagnostic Outside Reference (10/07/2019 12:05 AM CDT) Impressions [facility] - 08/08/2022 9:35 AM CDT These images are for Reference purposes only and have not been reviewed by [facility] Radiology. There will be no report generated by a [facility] Radiologist. Narrative [facility] - 08/08/2022 9:35 AM CDT EXAMINATION: Images For Reference Purposes Only us Karina Mcmanus NP IMG MAMMO PROCEDURES Fin al Result [facility] documented in this encounter Visit Diagnoses Not on filedocumented in this encounter
--- OUTSIDE RECORDS SUMMARY | 2024-11-09 14:38 | XMS_ITS | Clinical Summary ---
Author Organization [facility] Address [address] [place] [address] Care Team Providers Care Design Consultant Name Role Phone Juan Neville MD Primary Care Provider [phone] Allergies No known active allergies Medications Estradiol-Noret hindrone Acet 0.5-0.1 MG Tab 0 Active sertraline 50 MG tablet 0 Active vitamin D2, ergocalciferol, 53600 UNITS capsule TK ONE C PO ONCE A WK WITH A LARGE MEAL 9 Active meclizine 25 MG tablet TK 1 T PO QID PRF DIZZINESS 0 Active oseltamivir 75 MG capsule TK 1 C PO BID FOR 5 DAYS 0 Active sulfamethoxazol e-trimethoprim 800-160 MG tablet Take 1 tablet by mouth 2 (two) times daily. For 10 days 0 Active Active Problems Problem Noted Date Diagnosed Date Avulsion fracture of distal fibula 05/31/2019 Family History Medical History Relation Comments No Known Problems Brother No Known Problems Father No Known Problems Maternal Aunt No Known Problems Maternal Grandfather No Known Problems Maternal Grandmother No Known Problems Maternal Uncle No Known Problems Mother No Known Problems Paternal Aunt No Known Problems Paternal Grandfather No Known Problems Paternal Grandmother No Known Problems Paternal Uncle No Known Problems Sister Relation Status Comments Brother Father Maternal Aunt Maternal Grandfather Maternal Grandmother Maternal Uncle Mother Paternal Aunt Paternal Grandfather Paternal Grandmother Paternal Uncle Sister Social History Tobacco Use Types Packs/Day Years Used Date Smoking Tobacco: Never Smokeless Tobacco: Never Alcohol Use Standard Drinks/Week Comments Never 0 (1 standard drink = 0.6 oz pur e alcohol) AUDIT-C Answer Date Recorded Frequency of Alcohol Consumption Never 05/31/2019 Average Number of Drinks Not on file 020 Frequency of Binge Drinking Not on file 05/12 Comments Unknown Sex and Gender Information Value Date Recorded Sex Assigned at Not on file Legal Sex Female 11:50 AM CDT Gender Identity Not on file Sexual Orientation Not on file Last Filed Vital Signs Vital Sign Reading Time Taken Comments Blood Pressure 119/79 06/11/2019 8:38 AM CDT Pulse 67 06/11/2019 8:38 AM CDT Temperature 36.7 C (98 F) 06/11/2019 8:38 AM CDT Respiratory Rate - - Oxygen Saturation 98% 05/31/2019 8:13 AM CDT Inhaled Oxygen Concentration - - Weight 95.8 kg (211 lb 3.2 oz) 06/11/2019 8:38 A M CDT Height 182.9 cm (6') 06/11/2019 8:38 AM CDT Body Mass Index 28.64 06/11/2019 8:38 AM CDT Plan of Treatment Health Maintenance Due Date Last Done Comments Cervical Cancer Screening Pa p Smear (Age 30 to 64) Every 3 Years 1965 Colorectal Cancer Screening Colonoscopy (10 Years) 1965 Annual Physical 1968 Hepatitis C 1983 DTaP, Tdap and Td Vaccines ( 1 - Tdap) 1984 Cervical Cancer Screening Pa p with HPV Testing (Age 30 to 64) Every 5 Years 1995 Cervical Cancer Screening with HPV 1995 Mammogram Screening 2005 Pneumococcal Vaccine: 50+ Ye ars (1 of 1 - PCV) 2015 Zoster Vaccines (1 of 2) 2015 COVID-19 Vaccine (1 - 2023-2 5 season) 2024 Meningococcal B Vaccine Aged Out No l onger eligible based on patient's age to complete this topic Meningococcal Vaccine Aged Out No julián gerardo eligible based on patient's age to complete this topic RSV Immunizations Under 20 Months Aged Out No longer eligible based on patient's age to complete this topic Insurance [facility] [employer]OOK Care Teams Design Consultant Relationship Specialty Start Date End Date Juan Neville MD [phone] [id number] PCP - General FAMILY PRACTICE 05/28/19
--- OUTSIDE RECORDS SUMMARY | 2024-11-09 14:38 | XMS_ITS | Clinical Summary ---
Author Organization [facility] Address Formerly [facility] [place] [address] Care Team Providers Care Toppiece Chopper Name Role Phone Juan Neville MD Primary Care Prov ider Laura Shaw MD Unavailable [phone] Allergies No known active allergies Medications Zoloft 100 mg tablet Take 1 tablet (100 mg total) by mouth daily Active HYDROXYZINE PAMOATE ORAL Take 25 mg by mouth daily Active ergocalciferol, vitamin D2, (VITAMIN D2 ORAL) Take 1.25 Units by mouth every 7 days Active Active Problems Problem Noted Date Diagnosed Date Breast lesion 08/27/2022 Abnormal mammogram of left breast 08/27/2022 Encounters Date Type Department Care Team Description 08/26/2024 7:24 AM CDT - 08/26/2024 11:59 PM CDT Hospital Encounter [facility] [address] Breast [facility] [address] [place] [id number] Screening mammogram, encounter for Discharge Disposition: Discharge to home or self care from Last 3 Months Surgical History Surgery Date Site/Laterality Comments SECTION Family History Medical History Relation Name Comments Stomach cancer Father Breast cancer Neg Hx Relation Name Status Comments Father Social History Tobacco Use Types Packs/Day Years Used Date Smoking Tobacco: Never Passive Smoke Exposure: Never Smokeless Tobacco: Never Tobacco Cessation:Counseling Given: Not Answered Comments No Sex and Gender Information Value Date Recorded Sex Assigned at Not on file Legal Sex 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 [employer] Gender Identity Female 07/11/2023 7:56 AM CDT Sexual Orientation Straight 07/11/2023 7: 57 AM CDT Obstetrics History Para Term AB IAB SAB Ectopic Multiple Livin g Live Births 3 3 3 3 Date Outcome GA Total Labor Labor/2nd/3rd Weight Sex Type Anes PTL Mireille A1 A5 Name Clin Term Term Term Last Filed Vital Signs Vital Sign Reading Time Taken Comments Blood Pressure - - Pulse - - Temperature - - Respiratory Rate - - Oxygen Saturation - - Inhaled Oxygen Concentration - - Weight 97.5 kg (215 lb) 08/23/2022 1:03 PM CDT Height 182.9 cm (6') 08/23/2022 1:03 PM CDT Body Mass Index 29.16 08/23/2022 1:03 PM CDT Plan of Treatment Health Maintenance Due Date Last Done Comments Cervical Cancer Screening 1965 Colon Cancer Screening-Colonoscopy 1965 Depression Screening 1965 Hepatitis C Screening 1965 DTaP/Tdap/Td Vaccine (1 - Tdap) 1976 Hepatitis B Screening 1983 Regular Well Visit/Exam 18-64 1983 Zoster Vaccine (1 of 2) 2015 Covid-19 Vaccine (4 - 2024-2 6 season) 2024 12/04/2020, 04/15/2020, 03/18/2020 Influenza Vaccine (#1) 2024 Breast Cancer Screening-Mammogram 08/26/2025 08/26/2024, 08/25/2023, 08/23/2022 Pneumococcal vaccine <65 Aged Out No longer eligible based on patient's age to complete this topic Procedures Procedure Name Priority Date/Time Associated Diagnosis Comments SCREENING MAMMOGRAM BILATERAL W NAIF Schedule Routine, Read Routine (OP Routine) 08/26/2024 7:35 AM CDT Screening mammogram, encounter for from Last 3 Months Results * Screening Mammogram Bilateral W Naif (08/26/2024 7:35 AM CDT) Anatomical Region Laterality Modality Breast Bilateral Mammography Impressions 08/26/2024 8:25 AM CDT Bilateral No evidence of malignancy in either breast. OVERALL BI-RADS FINAL ASSESSMENT: 1 - Negative RECOMMENDATION: Recommend bilateral annual screening mammography. Narrative 08/26/2024 8:25 AM CDT EXAMINATION: Screening Mammogram Bilateral W Naif: 08/26/2024 COMPARISON: Relevant prior studies available at the time of interpretation were reviewed, including the most recent mammogram on: 08/28/2023. TECHNIQUE: Mammography was performed with 2D and digital breast tomosynthesis (DBT) images. CAD was utilized. BREAST PARENCHYMAL COMPOSITION: There are scattered areas of fibroglandular density. FINDINGS: Bilateral There is no suspicious mass, calcification, or architectural distortion in either breast. us Laura Shaw MD IMG MAMMO PROCEDURES Fin al Result from Last 3 Months [address] Care Teams Toppiece Chopper Relationship Specialty Start Date End Date Juan Neville MD PCP - General Family Medicine 07/26/22 Laura Shaw MD [address]22 [address] [address] Referring Physician Gynecology 07/26/22
== END 2024-11-09 14:25 | disposition home or self-care (01) ==
LOC: ANHGOSHLAB 14:27
PROVIDERS: PCP Family Medicine Adolescent Medicine; Visit Provider Obstetrics & Gynecology Gynecology
DX: E55.9 Vitamin D deficiency, unspecified (principal)
CPT/HCPCS: 36415; 82306